=== PATIENT | female | born 1975 | race Caucasian/White ===

== ENCOUNTER 2017-05-08 20:45 | Emergency (ER) | payer SELFPAY ==
[~2017-05-08 20:45] MED LIST: Donnatal Elixir 16.2 MG/5 ML UDCUP ONE; Sodium Chloride 0.9% 1,000 ML BAG ONE; Sodium Chloride 0.9% 100 ML BAG ONE
[2017-05-08] MEDS ORDERED: Ondansetron ODT 4 MG TAB ONE (22:47)
[2017-05-08] MEDS ORDERED: Mag-Al Plus 1200 MG/1200 MG/120 MG/30 ML UDCUP ONE (22:50)
[2017-05-08] MEDS ORDERED: Lidocaine Viscous Sol 2% 15 ml UD Cup ONE (22:50)
[2017-05-08] MEDS ORDERED: Donnatal Elixir 16.2 MG/5 ML UDCUP ONE (22:50)
[2017-05-09] MEDS ORDERED: Metoclopramide HCl 10 MG/2 ML VIAL ONE (00:16)
[2017-05-09] MEDS ORDERED: Promethazine HCl 25 MG/ML VIAL ONE (00:16)
[2017-05-09 00:36] LABS: #Basophils 0.1 thou/uL (0.0-0.2); #Lymphocytes 1.8 thou/uL (1.20-3.40); #Monocytes 1.5 thou/uL (0.11-0.59); #Neutrophils 15.2 thou/uL (1.40-6.50); %Basophils 0.3 % (0.0-1.0); %Lymphocytes 9.5 % (21.0-51.0); %Neutrophils 82.2 % (42.0-75.0); Hemoglobin 17.4 g/dL (12.0-16.0); Mean Corpuscular HGB CONC 33.5 g/dL (32.0-36.0); Mean Corpuscular Hemoglobin 29.2 pg (27.0-31.0); Mean Corpuscular Volume 87.1 fl (81.0-99.0); Mean Platelet Volume 8.1 fL (7.4-10.4); Platelet Count 276 thou/uL (130-400); RBC Distribution Width 12.5 % (11.5-14.5); Red Blood Cell (RBC) Count 5.95 mill/uL (4.20-5.40); White Blood Cell (WBC) Count 18.4 thou/uL (4.8-10.8)
[2017-05-09 00:50] LABS: Bilirubin Negative (Negative); Blood, Urine Trace (Negative); Clarity Hazy (Clear); Glucose, Urine (Dipstick) Negative (Negative); Icto Negative (Negative); Leukocyte Negative (Negative); Nitrite Negative (Negative); Protein, Urine (Dipstick) 100 mg/dL (Neg-Trace); Specific Gravity, Urine 1.025 (1.005-1.030); pH, Urine 6.5 (5.0-9.0)
[2017-05-09 00:51] LABS: Bacteria/HPF Rare-Few HPF (None Seen); WBC/HPF None Seen HPF (0-3); Yeast-All Forms Rare HPF (None Seen)
[2017-05-09 00:54] LABS: ALT (SGPT) 73 U/L (8-55); AST (SGOT) 137 U/L (5-34); Albumin 4.5 g/dL (3.5-5.0); Alkaline Phosphatase 90 U/L (40-150); Anion Gap 23 mmol/L (10-20); BUN (Urea Nitrogen) 23 mg/dL (7.0-18.7); Bilirubin, Total 0.8 mg/dL (0.2-1.2); Calc. Creatinine Clearance 0 mL/min (70-130); Calcium 9.6 mg/dL (7.8-10.44); Carbon Dioxide 29 mmol/L (22-29); Chloride 93 mmol/L (98-107); Estimated GFR-MDRD 77; Globulin 3.7 g/dL (2.4-3.5); Glucose 150 mg/dL (70-105); Lipase 24 U/L (8-78); Potassium 3.1 mmol/L (3.5-5.1); Protein, Total 8.2 g/dL (6.0-8.3); Sodium 142 mmol/L (136-145)
[2017-05-09] MEDS ORDERED: Mag-Al Plus 1200 MG/1200 MG/120 MG/30 ML UDCUP ONE (01:26)
[2017-05-09] MEDS ORDERED: Lidocaine Viscous Sol 2% 15 ml UD Cup ONE (01:26)
[2017-05-09] MEDS ORDERED: Donnatal Elixir 16.2 MG/5 ML UDCUP ONE (01:26)
[2017-05-09] MEDS ORDERED: Pantoprazole 40 MG VIAL ONE (03:58)
--- NOTE | 2017-05-09 08:25 | RAD ---
PORTABLE CHEST: Date: 05/08/17 HISTORY: Nausea, vomiting, and abdominal pain. FINDINGS: Lung vo are clear. Heart and mediastinum appear unremarkable. IMPRESSION: No acute process. POS: [facility]
== END 2017-05-09 04:30 | disposition home or self-care (01) ==
LOC: MADERS 20:45
DX: R10.9 Unspecified abdominal pain (principal); R11.2 Nausea with vomiting, unspecified; F32.9 Major depressive disorder, single episode, unspecified; F17.210 Nicotine dependence, cigarettes, uncomplicated; Z87.01 Personal history of pneumonia (recurrent)
CPT/HCPCS: 71010; 80053; 81001; 82150; 83690; 85025; 87086; 96361; 96365; 96375; C9113; J1170; J2550; J2765; J7050; Q0162

== ENCOUNTER 2018-03-17 16:31 | Emergency (ER) | payer OTHER, SELFPAY ==
[2018-03-17 17:06] LABS: Bilirubin Negative (Negative); Blood, Urine Large (Negative); Clarity Cloudy (Clear); Glucose, Urine (Dipstick) Negative (Negative); Leukocyte Negative (Negative); Nitrite Negative (Negative); Protein, Urine (Dipstick) Negative (Neg-Trace); Urobilinogen 0.2 mg/dL (0.2-1.0); pH, Urine 7.5 (5.0-9.0)
[2018-03-17 17:17] LABS: Bacteria/HPF 1+ HPF (None Seen); WBC/HPF 0-3 HPF (0-3)
[2018-03-17 17:18] LABS: Crystals/HPF 1+ AMORPH PHOS HPF (Negative)
[2018-03-17] MEDS ORDERED: diphenhydrAMINE 25 MG CAP ONE (18:00)
[2018-03-17] MEDS ORDERED: Diazepam 5 MG TAB ONE (18:00)
[2018-03-17] MEDS ORDERED: HYDROcodone/Acetaminophen 10/325 mg Tablet ONE (18:00)
--- NOTE | 2018-03-17 20:37 | CT ---
CT ABDOMEN NONCONTRAST CT PELVIS NONCONTRAST: (urolithiasis protocol) 03/17/18 HISTORY: 42-year-old female with bilateral flank pain. TECHNIQUE: IV injection of iodinated contrast media: none Oral contrast media: none FINDINGS: Other than for urolithiasis, the lack of IV and oral contrast limits the evaluation. Liver: No contour abnormalities. Spleen: No splenomegaly. Pancreas: No contour abnormalities. Adrenals: No mass. Kidneys: No nephrolithiasis or overt hydronephrosis. Ureters: No calculi. Bladder: No calculi. Abdominal aorta: No aneurysm. Small bowel: No dilation. Colon: No adjacent fat stranding. Appendix: No dilation or adjacent fat stranding. Free air: None. Free fluid: None. IMPRESSION: No acute findings. monico [] POS: [facility]
== END 2018-03-17 19:35 | disposition home or self-care (01) ==
LOC: MADERS 16:31
DX: M54.5 Low back pain (principal); F32.9 Major depressive disorder, single episode, unspecified; F17.210 Nicotine dependence, cigarettes, uncomplicated
CPT/HCPCS: 74176; 81003; 81015

== ENCOUNTER 2019-12-11 19:59 | Emergency (ER) | payer SELFPAY ==
[2019-12-11] MEDS ORDERED: HYDROcodone/Acetaminophen 10/325 mg Tablet ONE (20:50)
[2019-12-11] MEDS ORDERED: Cyclobenzaprine 10 MG TAB ONE (20:50)
== END 2019-12-11 20:58 | disposition home or self-care (01) ==
LOC: MADERS 19:59
DX: S46.912A Strain of unspecified muscle, fascia and tendon at shoulder and upper arm level, left arm, initial encounter (principal); F32.9 Major depressive disorder, single episode, unspecified; F17.210 Nicotine dependence, cigarettes, uncomplicated; X50.9XXA Other and unspecified overexertion or strenuous movements or postures, initial encounter
CPT/HCPCS: 99283

== ENCOUNTER 2020-05-15 23:32 | Emergency (ER) | payer BC ==
[2020-05-15] MEDS ORDERED: Nitroglycerin 0.4 MG TAB 1 EACH ONE (23:54)
[2020-05-15] MEDS ORDERED: Aspirin Chewable 81 MG TAB ONE (23:54)
[2020-05-16] MEDS ORDERED: Nitroglycerin 0.4 MG TAB 1 EACH ONE (00:03)
[2020-05-16 00:11] LABS: #Basophils 0.1 thou/uL (0.0-0.2); #Eosinphils 0.2 thou/uL (0.0-0.7); #Lymphocytes 2.8 thou/uL (1.20-3.40); #Monocytes 0.5 thou/uL (0.11-0.59); #Neutrophils 2.9 thou/uL (1.40-6.50); %Basophils 1.4 % (0.0-1.0); %Lymphocytes 42.7 % (21.0-51.0); Hemoglobin 14.4 g/dL (12.0-16.0); Mean Corpuscular HGB CONC 32.2 g/dL (32.0-36.0); Mean Corpuscular Hemoglobin 28.9 pg (27.0-31.0); Mean Corpuscular Volume 89.9 fL (78.0-98.0); Platelet Count 251 thou/uL (130-400); RBC Distribution Width 11.8 % (11.5-14.5); Red Blood Cell (RBC) Count 4.99 mill/uL (4.20-5.40); White Blood Cell (WBC) Count 6.5 thou/uL (4.8-10.8)
[2020-05-16 00:34] LABS: ALT (SGPT) 18 U/L (8-55); AST (SGOT) 17 U/L (5-34); Albumin 3.9 g/dL (3.5-5.0); Alkaline Phosphatase 70 U/L (40-110); Anion Gap 16 mmol/L (10-20); BUN (Urea Nitrogen) 11 mg/dL (7.0-18.7); Bilirubin, Total 0.3 mg/dL (0.2-1.2); Calc. Creatinine Clearance 0 mL/min (70-130); Calcium 8.6 mg/dL (7.8-10.44); Carbon Dioxide 24 mmol/L (22-29); Chloride 103 mmol/L (98-107); Estimated GFR-MDRD 81; Glucose 114 mg/dL (70-105); Potassium 3.6 mmol/L (3.5-5.1); Protein, Total 6.9 g/dL (6.0-8.3); Sodium 139 mmol/L (136-145)
[2020-05-16] MEDS ORDERED: Fentanyl 100 MCG/2 ML VIAL ONE (00:34)
--- NOTE | 2020-05-16 07:37 | RAD ---
CHEST 1 VIEW: INDICATION: History of chest pain. COMPARISON: Prior exam dated May 08, 2017. IMPRESSION: No acute cardiopulmonary abnormality. COMMENTS: Lungs are clear. Heart size is normal-appearing. No acute osseous abnormality is evident. POS: [facility]
== END 2020-05-16 03:47 | disposition home or self-care (01) ==
LOC: MADERS 23:32
DX: R07.9 Chest pain, unspecified (principal); F32.9 Major depressive disorder, single episode, unspecified; F17.210 Nicotine dependence, cigarettes, uncomplicated; Z87.01 Personal history of pneumonia (recurrent)
CPT/HCPCS: 71045; 80053; 83880; 84484; 85025; 93005; 96374; J3010

== ENCOUNTER 2021-04-03 19:33 | Emergency (ER) | payer OTHER, SELFPAY ==
[~2021-04-03 19:33] MED LIST changes: -Donnatal Elixir 16.2 MG/5 ML UDCUP ONE; +Iopamidol 370 76% 100 ML VIAL ONE; -Sodium Chloride 0.9% 1,000 ML BAG ONE; -Sodium Chloride 0.9% 100 ML BAG ONE
[2021-04-03 20:32] LABS: #Basophils 0.1 thou/uL (0.0-0.2); #Eosinphils 0.1 thou/uL (0.0-0.7); #Lymphocytes 1.9 thou/uL (1.20-3.40); #Monocytes 0.5 thou/uL (0.11-0.59); #Neutrophils 6.5 thou/uL (1.40-6.50); %Basophils 1.2 % (0.0-1.0); %Eosinophils 1.3 % (0.0-10.0); %Lymphocytes 20.5 % (21.0-51.0); %Monocytes 5.8 % (0.0-10.0); %Neutrophils 71.2 % (42.0-75.0); Hemoglobin 15.7 g/dL (12.0-16.0); Mean Corpuscular HGB CONC 31.7 g/dL (32.0-36.0); Mean Corpuscular Volume 91.4 fL (78.0-98.0); Mean Platelet Volume 7.9 fL (7.4-10.4); Platelet Count 316 thou/uL (130-400); RBC Distribution Width 12.5 % (11.5-14.5); Red Blood Cell (RBC) Count 5.42 mill/uL (4.20-5.40); White Blood Cell (WBC) Count 9.1 thou/uL (4.8-10.8)
[2021-04-03 20:52] LABS: INR-International Normal Ratio 0.8; Prothrombin Time 11.5 sec (12.0-14.7)
[2021-04-03 21:01] LABS: BHCG - Serum POSITIVE (NEGATIVE); Pregs Control Background? CLEAR/WHITE (CLR/WHITE); Pregs Control Bar Appear? YES (CONTROL BAR)
[2021-04-03 21:02] LABS: ALT (SGPT) 30 U/L (8-55); AST (SGOT) 30 U/L (5-34); Albumin 4.2 g/dL (3.5-5.0); Alkaline Phosphatase 116 U/L (40-110); Anion Gap 16 mmol/L (10-20); BUN (Urea Nitrogen) 9 mg/dL (7.0-18.7); Bilirubin, Total 0.4 mg/dL (0.2-1.2); Calc. Creatinine Clearance 0 mL/min (70-130); Calcium 9.4 mg/dL (7.8-10.44); Carbon Dioxide 24 mmol/L (22-29); Chloride 101 mmol/L (98-107); Globulin 3.3 g/dL (2.4-3.5); Glucose 115 mg/dL (70-105); Potassium 4.1 mmol/L (3.5-5.1); Protein, Total 7.5 g/dL (6.0-8.3); Sodium 137 mmol/L (136-145)
[2021-04-03] MEDS ORDERED: HYDROmorphone 0.5 MG/0.5 ML SYRINGE ONE ×2 (21:03→23:45)
== END 2021-04-04 00:47 | disposition home or self-care (01) ==
LOC: MADERS 19:33
DX: S22.059A Unspecified fracture of T5-T6 vertebra, initial encounter for closed fracture (principal); R79.89 Other specified abnormal findings of blood chemistry; F17.210 Nicotine dependence, cigarettes, uncomplicated; Z87.01 Personal history of pneumonia (recurrent); W11.XXXA Fall on and from ladder, initial encounter
CPT/HCPCS: 71260; 74177; 80053; 84702; 84703; 85025; 85610; 96374; 96376; J1170; Q9967

== ENCOUNTER 2022-04-04 16:20 | Emergency (ER) | payer BC, SELFPAY ==
[2022-04-04 17:38] LABS: #Basophils 0.1 thou/uL (0.0-0.2); #Eosinphils 0.1 thou/uL (0.0-0.7); #Lymphocytes 2.3 thou/uL (1.20-3.40); #Monocytes 0.6 thou/uL (0.11-0.59); #Neutrophils 4.6 thou/uL (1.40-6.50); %Basophils 0.8 % (0.0-1.0); %Eosinophils 0.7 % (0.0-10.0); %Lymphocytes 30.5 % (21.0-51.0); %Monocytes 7.2 % (0.0-10.0); %Neutrophils 60.8 % (42.0-75.0); Mean Corpuscular Volume 87.8 fL (78.0-98.0); Mean Platelet Volume 7.7 fL (7.4-10.4); Platelet Count 232 thou/uL (130-400); RBC Distribution Width 12.5 % (11.5-14.5); Red Blood Cell (RBC) Count 5.36 mill/uL (4.20-5.40); White Blood Cell (WBC) Count 7.6 thou/uL (4.8-10.8)
[2022-04-04 17:52] LABS: Bilirubin Negative (Negative); Blood, Urine Negative (Negative); Clarity Clear (Clear); Glucose, Urine (Dipstick) Negative (Negative); Ketone, Urine Negative (Negative); Leukocyte Negative (Negative); Nitrite Negative (Negative); Protein, Urine (Dipstick) Negative (Neg-Trace); Urobilinogen 0.2 mg/dL (Less than 2); pH, Urine 5.5 (5.0-9.0)
[2022-04-04 17:54] LABS: ALT (SGPT) 37 U/L (8-55); AST (SGOT) 27 U/L (5-34); Albumin 4.2 g/dL (3.5-5.0); Alkaline Phosphatase 110 U/L (40-110); Anion Gap 13 mmol/L (10-20); BUN (Urea Nitrogen) 8 mg/dL (7.0-18.7); Bilirubin, Total 0.4 mg/dL (0.2-1.2); Calc. Creatinine Clearance 0 mL/min (70-130); Calcium 8.8 mg/dL (7.8-10.44); Carbon Dioxide 25 mmol/L (22-29); Chloride 106 mmol/L (98-107); Estimated GFR 109; Globulin 2.6 g/dL (2.4-3.5); Glucose 101 mg/dL (70-105); Potassium 3.4 mmol/L (3.5-5.1); Protein, Total 6.8 g/dL (6.0-8.3); Sodium 141 mmol/L (136-145)
[2022-04-04 17:54] LABS: Specific Gravity, Urine 1.007 (1.002-1.036)
[2022-04-04] MEDS ORDERED: HYDROcodone/Acetaminophen 5/325 mg Tablet ONE (18:50)
== END 2022-04-04 18:55 | disposition home or self-care (01) ==
LOC: MADERS 16:20
DX: R51.9 Headache, unspecified (principal); R00.0 Tachycardia, unspecified; Z20.822 Contact with and (suspected) exposure to COVID-19; F17.210 Nicotine dependence, cigarettes, uncomplicated
CPT/HCPCS: 80053; 81003; 84443; 84484; 85025; 93005; U0003; U0005

== ENCOUNTER 2025-09-12 17:05 | Emergency (ER) | payer SELFPAY | END 2025-09-12 19:22 | disposition home or self-care (01) | LOC: MADERS 17:05 | DX: M25.562 Pain in left knee (principal); F17.210 Nicotine dependence, cigarettes, uncomplicated | CPT/HCPCS: 99283 ==